=== PATIENT | male | born 1965 | race Caucasian/White ===

== ENCOUNTER → 2021-06-26 | Outpatient (CLI) | payer MEDICARE ==
[~2021-06-26] MED LIST: AUGMENTIN 875-1 EACH PO; ZITHROMAX250 MG PO
== END ==
LOC: KOH-I 09:06
DX: B97.21 SARS-associated coronavirus as the cause of diseases classified elsewhere (principal); R91.8 Other nonspecific abnormal finding of lung field
CPT/HCPCS: 71046

== ENCOUNTER → 2021-07-13 | Outpatient (CLI) | payer MEDICARE ==
[2021-07-13 08:33] LABS: BUN/CREATININE RATIO 14 (0-10)
[2021-07-13 08:41] LABS: WHITE BLOOD COUNT 8.6 K/UL (4.5-11.0)
[2021-07-13 08:42] LABS: HEMOGLOBIN 15.9 gm/dl (14.0-17.5); RED BLOOD COUNT 5.13 M/UL (4.20-5.50)
== END ==
LOC: CT 07:46
PROVIDERS: Physician Assistant
DX: E78.5 Hyperlipidemia, unspecified (principal); I70.213 Atherosclerosis of native arteries of extremities with intermittent claudication, bilateral legs
CPT/HCPCS: 36415; 75635; 80053; 80061; 83036; 84439; 84443; 85025; Q9967

== ENCOUNTER → 2021-08-14 | Outpatient (CLI) | payer MEDICARE | LOC: ECHO 08-11 08:30 | DX: R06.02 Shortness of breath (principal); Z95.2 Presence of prosthetic heart valve | CPT/HCPCS: ECHO; 93306 ==

== ENCOUNTER → 2021-08-30 | Day surgery (SDC) | payer MEDICARE ==
[~2021-08-30] MED LIST changes: +CLOPIDOGREL75 MG PO; +JARDIANCE25 MG PO; +NEURONTIN600 MG PO; +OXYCONTIN10 MG PO; +OXYMORPHONE HCL10 M1 PO; +PRAVASTATIN SOD20 MG PO; +WELLBUTRIN XL150 MG PO
== END | disposition home or self-care (01) ==
LOC: CATH 08:00
DX: T82.09XA Other mechanical complication of heart valve prosthesis, initial encounter (principal); I34.0 Nonrheumatic mitral (valve) insufficiency; Z95.2 Presence of prosthetic heart valve; E11.51 Type 2 diabetes mellitus with diabetic peripheral angiopathy without gangrene; J44.9 Chronic obstructive pulmonary disease, unspecified; G47.30 Sleep apnea, unspecified; E78.00 Pure hypercholesterolemia, unspecified; M19.90 Unspecified osteoarthritis, unspecified site; F32.A Depression, unspecified; Z79.84 Long term (current) use of oral hypoglycemic drugs; Z79.899 Other long term (current) drug therapy; Z72.89 Other problems related to lifestyle; Z87.891 Personal history of nicotine dependence; Z82.49 Family history of ischemic heart disease and other diseases of the circulatory system
CPT/HCPCS: 82962; 93005; 93312; 93320; J2250; J2310; J3010

== ENCOUNTER → 2021-10-03 | Outpatient (CLI) | payer MEDICARE | LOC: HEART 5 10-02 09:30 | DX: Z95.2 Presence of prosthetic heart valve (principal) | CPT/HCPCS: 78452; A9502; J2785 ==

== ENCOUNTER 2022-01-01 16:36 | Emergency (ER) | payer MEDICARE, OTHER ==
[2022-01-01 18:18] LABS: RED BLOOD COUNT 4.79 M/UL (4.20-5.50); WHITE BLOOD COUNT 10.6 K/UL (4.5-11.0)
[2022-01-01 18:36] LABS: BUN/CREATININE RATIO 16 (0-10)
[2022-01-01] MEDS ORDERED: ELIQUIS5 MG PO (23:05)
== END 2022-01-01 23:29 | disposition home or self-care (01) ==
LOC: ER1 16:36
PROVIDERS: Physician Assistant
DX: I82.432 Acute embolism and thrombosis of left popliteal vein (principal); R06.02 Shortness of breath; E11.40 Type 2 diabetes mellitus with diabetic neuropathy, unspecified; F17.290 Nicotine dependence, other tobacco product, uncomplicated; Z79.82 Long term (current) use of aspirin; Z79.02 Long term (current) use of antithrombotics/antiplatelets; Z79.01 Long term (current) use of anticoagulants
CPT/HCPCS: 80053; 82550; 82553; 83605; 84484; 85025; 85379; 85610; 85730; 93005; 93926; 93971; 99284; J2270; J2405; Q9967